=== PATIENT | female | born 1995 | race Caucasian/White ===

== ENCOUNTER → 2021-09-26 17:12 | Outpatient (BNVA) | payer OTHER, SELFPAY | PROVIDERS: PCP Nurse Practitioner Family; Visit Provider Registered Nurse Neonatal Intensive Care | DX: S69.91XA Unspecified injury of right wrist, hand and finger(s), initial encounter (principal); W23.0XXA Caught, crushed, jammed, or pinched between moving objects, initial encounter | CPT/HCPCS: 73110 ==

== ENCOUNTER → 2022-04-02 12:03 | Outpatient (BNVA) | payer OTHER, SELFPAY | PROVIDERS: PCP Nurse Practitioner Family; Visit Provider Nurse Practitioner | DX: N39.0 Urinary tract infection, site not specified (principal) | CPT/HCPCS: 81000 ==

== ENCOUNTER → 2023-02-21 17:17 | Outpatient (BNVA) | payer OTHER, SELFPAY | PROVIDERS: PCP Nurse Practitioner Family; Visit Provider Nurse Practitioner | DX: R39.9 Unspecified symptoms and signs involving the genitourinary system (principal); B37.31 Acute candidiasis of vulva and vagina | CPT/HCPCS: 81000 ==

== ENCOUNTER → 2023-02-27 10:42 | Outpatient (BNVA) | payer OTHER, SELFPAY | PROVIDERS: PCP Nurse Practitioner Family; Visit Provider Family Medicine | DX: F41.1 Generalized anxiety disorder (principal); J45.909 Unspecified asthma, uncomplicated; J30.9 Allergic rhinitis, unspecified; Z76.89 Persons encountering health services in other specified circumstances | CPT/HCPCS: 80053; 85025 ==

== ENCOUNTER → 2023-05-16 08:29 | Outpatient (BNVA) | payer SELFPAY | PROVIDERS: PCP Family Medicine; Visit Provider Nurse Practitioner Women's Health | DX: Z32.00 Encounter for pregnancy test, result unknown (principal); N92.6 Irregular menstruation, unspecified; Z78.9 Other specified health status; F41.1 Generalized anxiety disorder | CPT/HCPCS: 81025; 84702 ==

== ENCOUNTER → 2023-05-31 08:24 | Outpatient (BNVA) | payer BC, OTHER, SELFPAY | PROVIDERS: PCP Family Medicine; Visit Provider Nurse Practitioner Women's Health | DX: Z36.87 Encounter for antenatal screening for uncertain dates (principal) | CPT/HCPCS: 76801 ==

== ENCOUNTER → 2023-06-12 11:03 | Outpatient (BNVA) | payer BC, OTHER, SELFPAY | PROVIDERS: PCP Family Medicine; Visit Provider Obstetrics & Gynecology | DX: Z34.00 Encounter for supervision of normal first pregnancy, unspecified trimester (principal) | CPT/HCPCS: 80307; 84315; 87086 ==

== ENCOUNTER → 2023-06-13 08:20 | Outpatient (BNVA) | payer BC, OTHER, SELFPAY | PROVIDERS: PCP Family Medicine; Visit Provider Obstetrics & Gynecology | DX: Z34.00 Encounter for supervision of normal first pregnancy, unspecified trimester (principal) | CPT/HCPCS: 85027; 86592; 86762; 86803; 86850; 86900; 87340; 87806 ==

== ENCOUNTER → 2023-06-26 09:00 | Outpatient (BNVA) | payer BC, OTHER, SELFPAY | PROVIDERS: PCP Family Medicine; Visit Provider Obstetrics & Gynecology | DX: Z34.00 Encounter for supervision of normal first pregnancy, unspecified trimester (principal) | CPT/HCPCS: 84315; 87491; 87591 ==

== ENCOUNTER → 2023-08-14 13:27 | Outpatient (BNVA) | payer BC, OTHER, SELFPAY | PROVIDERS: PCP Family Medicine; Visit Provider Obstetrics & Gynecology | DX: Z34.00 Encounter for supervision of normal first pregnancy, unspecified trimester (principal) | CPT/HCPCS: 76805; 84315 ==

== ENCOUNTER → 2023-10-10 09:30 | Outpatient (BNVA) | payer BC, SELFPAY | PROVIDERS: PCP Family Medicine; Visit Provider Obstetrics & Gynecology | DX: Z34.00 Encounter for supervision of normal first pregnancy, unspecified trimester (principal) | CPT/HCPCS: 82950; 84315; 85025 ==

== ENCOUNTER → 2023-11-07 10:16 | Outpatient (BNVA) | payer BC, SELFPAY | PROVIDERS: PCP Family Medicine; Visit Provider Obstetrics & Gynecology | DX: Z34.00 Encounter for supervision of normal first pregnancy, unspecified trimester (principal) | CPT/HCPCS: 76816; 84315 ==

== ENCOUNTER 2023-11-21 08:58 | Outpatient (CLI) | payer BC, SELFPAY ==
[2023-11-21] VITALS (9 sets, daily range): BP systolic 129–136; BP diastolic 75–90; PULSE 77–93; RESP 18; BMI 32.5
[2023-11-21 10:10] LABS: Urine Creatinine 50 mg/dL (28-217); Urine Protein Random 7 mg/dL
[2023-11-21 10:12] LABS: UPRO/UCREAT Ratio 0.14 mg/mg CR
[2023-11-21 10:30] LABS: Bilirubin Urine Neg (Negative); Blood Urine Neg (Negative); Glucose Urine UA Norm (Normal); Ketones Urine Negative (Negative); Leukocyte Esterase Urine Negative (Negative); Nitrate Urine Negative (Negative); Protein Urine Neg (Negative); Specific Gravity, Urine 1.015 (1.005-1.030); Urine Appearance Clear (CLEAR); Urine Color Yellow (Yellow); Urobilinogen Urine Norm (Negative); pH Urine 7 (5-7)
[2023-11-21 10:31] LABS: Add Urine Culture? No; RBC Urine RARE /hpf (0-2); Squamous Epithelial Cell Urine 0-4 /hpf (0-5); WBC Urine 0-4 /hpf (0-5)
== END 2023-11-21 10:49 | disposition home or self-care (01) ==
LOC: OPOB 09:13 → OBGYN 09:14
PROVIDERS: PCP Family Medicine; Visit Provider Obstetrics & Gynecology
DX: O26.899 Other specified pregnancy related conditions, unspecified trimester (principal); O16.9 Unspecified maternal hypertension, unspecified trimester; Z3A.00 Weeks of gestation of pregnancy not specified
CPT/HCPCS: 59025; 81001; 82570; 84156; 84315; 99211

== ENCOUNTER → 2023-12-05 08:12 | Outpatient (BNVA) | payer BC, SELFPAY | PROVIDERS: PCP Family Medicine; Visit Provider Obstetrics & Gynecology | DX: Z34.00 Encounter for supervision of normal first pregnancy, unspecified trimester (principal) | CPT/HCPCS: 84315; 87081 ==

== ENCOUNTER 2023-12-17 03:31 | Outpatient (CLI) | payer BC, SELFPAY ==
[2023-12-17 03:24] VITALS: BMI 33.0
[2023-12-17 03:46] VITALS: BP 127/84; PULSE 100; RESP 17; TEMP 36.2
[2023-12-17 04:02] VITALS: BP 115/76; PULSE 100; RESP 16
[2023-12-17 04:16] VITALS: BP 117/78; PULSE 115; RESP 16
[2023-12-17 04:31] VITALS: BP 118/77; PULSE 108; RESP 16
[2023-12-17 04:46] VITALS: BP 117/80; PULSE 126; RESP 16
[2023-12-17 05:13] VITALS: BP 127/84; PULSE 100; RESP 17; TEMP 36.2
== END 2023-12-17 05:13 | disposition home or self-care (01) ==
LOC: OPOB 03:31 → OBGYN 03:32
PROVIDERS: PCP Family Medicine; Visit Provider Obstetrics & Gynecology
DX: O26.899 Other specified pregnancy related conditions, unspecified trimester (principal); Z3A.00 Weeks of gestation of pregnancy not specified; R10.9 Unspecified abdominal pain
CPT/HCPCS: 59025; 99211

== ENCOUNTER 2023-12-30 11:28 | Outpatient (CLI) | payer BC, SELFPAY ==
[2023-12-17 04:02] VITALS: PULSE 100; RESP 16
[2023-12-17 04:16] VITALS: PULSE 115; RESP 16
[2023-12-17 04:31] VITALS: PULSE 108; RESP 16
[2023-12-17 04:46] VITALS: PULSE 126; RESP 16
[2023-12-30 11:48] VITALS: BP 124/80; PULSE 73
[2023-12-30 11:49] VITALS: BMI 32.5
[2023-12-30 12:01] VITALS: BP 121/77; PULSE 79
[2023-12-30 12:16] VITALS: BP 119/78; PULSE 82
[2023-12-30 13:25] VITALS: BP 123/74; PULSE 88; TEMP 36.2
[2023-12-30 15:02] VITALS: BP 125/81; PULSE 87
[2023-12-30 15:05] VITALS: BP 125/81; PULSE 87; RESP 16
== END 2023-12-30 15:05 | disposition home or self-care (01) ==
LOC: OPOB 11:33 → OBGYN 11:34
PROVIDERS: PCP Family Medicine; Visit Provider Obstetrics & Gynecology
DX: O26.899 Other specified pregnancy related conditions, unspecified trimester (principal); Z3A.00 Weeks of gestation of pregnancy not specified; R10.9 Unspecified abdominal pain
CPT/HCPCS: 59025; 99211

== ENCOUNTER 2023-12-31 13:55 | Inpatient (IN) | payer BC, SELFPAY ==
[2023-12-31] VITALS (59 sets, daily range): BP systolic 96–138; BP diastolic 55–87; PULSE 63–125; TEMP 35.8–36.3; O2SAT 98–99; BMI 32.9
--- NOTE | 2023-12-31 14:10 | P.HP_ITS ---
Providers/Chief Complaint 2 Admitting Physician: Maximino Everett MD Primary HOME DAY CARE PROVIDER: Maximino Everett MD Primary Care Provider: Bipin Mckeon DO Chief Complaint: Abdominal pain HPI HOME DAY CARE PROVIDER History of Present Illness 28 y.o. G1 EDC December 31, 2023 At 40 w 0 d No complications Presents to L&D c/o painful UCs States was up all night due to contractions No bleeding or fluid leakage + active movements Present Details : 1 Para: 0 Medications/Allergies Home Medications Medication Instructions Recorded Confirmed Last Taken Type prenat.vits,bola,jkz-eekt-ivtch 1 tab PO DAILY 07/18/23 12/30/23 Unknown History montelukast 10 mg tablet 10 mg PO DAILY #30 tabs 10/02/23 12/30/23 Unknown Rx (Singulair) fluoxetine 10 mg capsule See Rx Instructions .Route 11/21/23 12/30/23 Unknown Rx .COMPLEX #30 caps Allergies Allergy/AdvReac Type Severity Reaction Status Date / Time No Known Allergies Allergy Verified 12/26/23 07:58 PFSH HOME DAY CARE PROVIDER 2 PFSH: Medical History No pertinent past medical history neghx: htn,dm,thyroid,dvt/pe PCP: Dr. Mckeon History of asthma Surgical History No pertinent past surgical history Family History Mother Lupus Seasonal allergies Diabetes Father Seasonal allergies Hypertension Breast cancer Father Diabetes Sister Diabetes Grandmother Diabetes great grandmother maternal Breast cancer maternal Family/Other Ovarian cancer maternal aunt Other Colon cancer Denies family history of Hyperlipidemia Thyroid disease Stroke History History History 2 1 Term 0 Miscarriages/Ectopic Living Children Care MCKENNA Calculator 2 Estimated Delivery Date Method Current WG Current Estimate 12/31/23 Ultrasound #1 40w 0d Other Estimates 01/10/24 LMP (Uncertain) 38w 4d Specific Issues/Plans * UNKNOWN LMP * ANXIETY Vitals/I&O/Wt Last Vital Signs Temp 97.3 F L 12/31/23 14:16 Pulse 77 12/31/23 17:41 BP 98/55 12/31/23 17:41 Pulse Ox 99 12/31/23 15:52 12/31/23 12/31/23 12/31/23 06:59 14:59 22:59 Intake Total 1000 / 1000 Balance 1000 / 1000 Weight last 48 hrs Weight 204 lb Physical Exam 2 Narrative: Weight 204 lbs; 5?6 VS normal Comfortable Lungs: clear Cor: RRR Abd: nontender FH 37 cm; cephalic FHTs normal Cervix: 1-2 cm / 90 / -2 / posterior Ext: no edema External monitor: heart tracing good variability + accelerations Data 12/31/23 13:50 Results Labs OB ([facility]): 2 Obstetrics US 11/07/23 Blood Type A Positive 12/31/23 Antibody Screen Negative 12/31/23 Hct 39.9 % (36-47) 12/31/23 Hgb 13.50 g/dL (11.27-16.99) 12/31/23 Rho(D) Type Rh positive 12/31/23 Plt Count 281 10^3/cmm (157-399) 12/31/23 Hep Bs Antigen Non-reactive (Nonreactive) 06/13/23 Hepatitis C Antibody Non-reactive (Nonreactive) 06/13/23 Rubella IgG Antibody 248.8 IU/mL (0.0-10.0) H 06/13/23 RPR Nonreactive (Nonreactive) 06/13/23 HIV 1&2 Ab & HIV 1 Ag Non-reactive (Non-Reactiv) 06/13/23 C.trachomatis RNA (TMA) Not detected (NOT DETECTED) N.gonorrhoeae RNA (TMA) Not detected (NOT DETECTED) T. vaginalis Amp RNA Not detected (NOT DETECTED) 06/26/23 Chlamydia/GC Comment See note 06/26/23 Gest Glucose Tolerance 97 mg/dL (70-139) 10/10/23 Ser , Semi-Qnt 20170.00 mIU/mL 05/16/23 HCG, Qual Positive (Negative) H 05/16/23 Urine Opiates Screen Negative ng/mL (Negative) 06/12/23 Ur Barbiturates Screen Negative ng/mL (Negative) 06/12/23 Ur Phencyclidine Scrn Negative ng/mL (Negative) 06/12/23 Ur Amphetamines Screen Negative ng/mL (Negative) 06/12/23 U Benzodiazepines Scrn Negative ng/mL (Negative) 06/12/23 Urine Cocaine Screen Negative ng/mL (Negative) 06/12/23 U Marijuana (THC) Screen Negative ng/mL (Negative) 06/12/23 Micro Urine Specimen 06/12/23 A&P Assessment and plan (1) Encounter for induction of labor: 40 w 0 d Fetus reassuring Patient requests labor induction Procedures of labor induction explained to patient, including use of Cytotec and Pitocin Risks of labor induction explained, including, but not limited to, prolonged labor, slight increase in rate. Patient understands and wants to proceed Plan admit Plan Cytotec 25 ug intravaginal Attestations 2 Medical Necessity Statement*: patient at 40 w 0d with labor pains, requests induction of labor Coding Level of Care Code Acute Code for Chg Fwd Diagnoses Encounter for induction of labor Z34.90 Time Spent (min) 60
[2023-12-31] MEDS: lactated ringers 1,000 ML 999 ML IV ×2 (14:13→15:28)
[2023-12-31 15:11] LABS: Basophils # 0.1 10^3/uL (0.0-0.1); Basophils % 0.3 %; Eosinophils # 0.1 10^3/uL (0.0-0.8); Eosinophils % 0.8 %; Hematocrit 39.9 % (36-47); Lymphocytes # 1.8 10^3/uL (0.8-4.8); Lymphocytes % 10.1 %; Mean Corpuscular HGB Conc 33.8 g/dL (30-55); Mean Corpuscular Hemoglobin 32.2 pg (27-33); Mean Corpuscular Volume 95.2 fl (85-98); Mean Platelet Volume 10.4 fL (7.4-10.4); Monocytes # 0.7 10^3/uL (0.2-0.9); Monocytes % 4.1 %; Neutrophils # 14.71 10^3/uL (1.8-7.7); Nucleated Red Blood Cells % 0 %; Platelet Count 281 10^3/cmm (157-399); Red Blood Count 4.19 10^6/uL (3.85-5.65); Red Cell Distribution Width 12.2 % (12.1-15.1)
--- NOTE | 2023-12-31 16:00 | ANES.PROC ---
Anesthesia Procedures Procedure/Date: 12/31/23 Epidural: Time Out Performed: Yes Consents Signed: Procedure Consent Consent: requested by attending/covering physician, from patient, risks and benefits reviewed and patient agrees to proceed Lumbar Level: L2-L3 Epidural position: sitting Epidural procedure: sterile prep of area, 1% lidocaine to numb the area, 18 g needle, neg for paresthesia, test dose given, 1.5% xylocaine 1:200k epi (5cc), 0.2% Ropivacaine bolus ml (4cc and Fentanyl 100mcg), placed PCEA, no systemic response, sterile dressing applied, L.U.D. no apparent complications and 0.2% Ropiavacaine @ mls/hr (10cc/hour> TAIWO at 7cm. Cath placed 2cm into space. Pt tolerated well)
--- NOTE | 2023-12-31 16:02 | P.ANESASSM_ITS ---
Pre-Anesthetic Assessment Height/Weight: Height 1.68 m Weight 92.533 kg Temp Pulse BP Pulse Ox 97.3 F L 108 H 113/71 99 12/31/23 14:16 12/31/23 15:58 12/31/23 15:58 12/31/23 15:52 Preop Diagnosis: Labor pain BERONICA Was Beta Alfred taken within 24 hours: N/A Was Clonidine taken within 24 hours: N/A Social No alcohol and No tobacco Exam alert, oriented x 3, clear to auscultation bilaterally and regular rate & rhythm Airway Submandibular: within normal limits Cervical ROM: within normal limits Mallampati: Class II Dentition: full History/ROS No significant history except as noted and No significant complaints Pulmonary Asthma CV/HEM None reported None reported Hepatic None reported GI None reported Metabolic None reported Musc/skel None reported Neuropsych None reported Anesthetic Plan ASA status: 2 Anesthesia: Anesthesia Evaluation and Regional (specify below) (BERONICA) Risk of > 500 ml blood loss (7ml/kg in children): No Medications/Allergies Home Medications Medication Instructions Recorded Confirmed Last Taken Type prenat.vits,bola,zbx-zhwz-hfrfl 1 tab PO DAILY 07/18/23 12/30/23 Unknown History montelukast 10 mg tablet 10 mg PO DAILY #30 tabs 10/02/23 12/30/23 Unknown Rx (Singulair) fluoxetine 10 mg capsule See Rx Instructions .Route 11/21/23 12/30/23 Unknown Rx .COMPLEX #30 caps Allergies Allergy/AdvReac Type Severity Reaction Status Date / Time No Known Allergies Allergy Verified 12/26/23 07:58 Current Medications Generic Name Dose Route Start Last Admin Trade Name Freq PRN Reason Stop Dose Admin Lactated Ringer's 1,000 mls @ 999 mls/hr 12/31/23 14:02 12/31/23 15:28 Lactated Ringers IV 999 mls/hr .Q1H1M PRN Administration See label comments PFSH Anesthesia Medical History No pertinent past medical history neghx: htn,dm,thyroid,dvt/pe PCP: Dr. Mckeon History of asthma Surgical History No pertinent past surgical history Family History Mother Lupus Seasonal allergies Diabetes Father Seasonal allergies Hypertension Breast cancer Father Diabetes Sister Diabetes Grandmother Diabetes great grandmother maternal Breast cancer maternal Family/Other Ovarian cancer maternal aunt Other Colon cancer Denies family history of Hyperlipidemia Thyroid disease Stroke Female Reproductive History : 1 Spontaneous abortions: No Data Anesthesia 12/31/23 13:50 Short CBC 12/31/23 Range/Units 13:50 WBC 17.50 H (3.29-11.43) 10^3/uL Hgb 13.50 (11.27-16.99) g/dL Hct 39.9 (36-47) % MCV 95.2 (85-98) fl Plt Count 281 (157-399) 10^3/cmm Neut % (Auto) 84.0 % Neut # (Auto) 14.71 H (1.8-7.7) 10^3/uL Blood Bank 12/31/23 13:50 Blood Type A Positive Rho(D) Type Rh positive Antibody Screen Negative Cardiac Studies: 2 No Data to Display
[2023-12-31] MEDS: ROPivacaine syringe 100 MG/50 ML SYRINGE 10 MG EPIDURAL ×2 (16:06→20:45)
--- NOTE | 2023-12-31 17:45 | P.PN_ITS ---
INVESTIGATIONS CHIEF Subjective 2 Subjective: Interval history: Fetus reassuring Comfortable with epidural Cx (per RN) 4 cm Plan start pitocin Labor: Station: -2 Amniotic Membrane Status: Intact Monitor Mode: External Contraction Pattern: Regular Status: Category I Vitals/I&O/Wt Last Vital Signs Temp 97.3 F L 12/31/23 14:16 Pulse 72 12/31/23 17:56 BP 105/59 12/31/23 17:56 Pulse Ox 99 12/31/23 15:52 12/31/23 12/31/23 12/31/23 06:59 14:59 22:59 Intake Total 1000 / 1000 Balance 1000 / 1000 Weight last 48 hrs Weight 204 lb Data 12/31/23 13:50 A&P Assessment and plan (1) Encounter for induction of labor: Attestations 2 Medical Necessity Statement*: patient at 40 w 0 d with labor pains, admitted for induction of labor Coding Level of Care Code Acute Code for Chg Fwd Diagnoses Encounter for induction of labor Z34.90 Time Spent (min) 20
[2023-12-31] MEDS: oxytocin 30 UNIT/500 ML BAG IV (18:09)
[2023-12-31] MEDS: dextrose 5%-lactated ringers 1,000 ML 125 ML IV (20:32)
[2024-01-01] VITALS (22 sets, daily range): BP systolic 104–144; BP diastolic 59–89; PULSE 45–133; RESP 16; TEMP 36.5–36.9; O2SAT 96–98
[2024-01-01] MEDS: oxytocin 30 UNIT/500 ML BAG 600 UNIT IV (01:01)
[2024-01-01] MEDS: lidocaine 2% INJ 20 mL INJECTION (01:24)
--- NOTE | 2024-01-01 02:14 | P.PN_ITS ---
SALESPERSON JEWELRY Subjective 2 Subjective: Interval history: DELIVERY NOTE , vigorous female infant Cord gases obtained Normal placenta and cord Second-degree perineal laceration repaired EBL: 300 cc No complications Labor: Station: +1 Amniotic Membrane Status: Ruptured Monitor Mode: External Contraction Pattern: Regular Status: Category I Vitals/I&O/Wt Last Vital Signs Temp 96.4 F L 12/31/23 19:06 Pulse 114 H 01/01/24 02:11 BP 110/66 01/01/24 02:11 Pulse Ox 99 12/31/23 15:52 O2 Del Method Room Air 12/31/23 21:20 12/31/23 12/31/23 01/01/24 14:59 22:59 06:59 Intake Total 2061. / 60.2 / 566 Balance / 60.2 / 566 Weight last 48 hrs Weight 204 lb Physical Exam 2 Urinary Catheter Management: Quijano Latex: Cath Placed During This Visit: yes Reason for Continuing Indwelling Catheter: Required Immobilization for Trauma or Surgery or Anesthesia Urinary Catheter Date of Insertion: 12/31/23 Urinary Catheter Time of Insertion: 16:50 Data 12/31/23 13:50 A&P Assessment and plan (1) Vaginal delivery: (2) Second degree perineal laceration: Attestations 2 Medical Necessity Statement*: patient at 40 w 0 d with labor pains, admitted for induction of labor s/p vaginal delivery Coding Level of Care Code Acute Code for Chg Fwd Diagnoses Vaginal delivery O80 Second degree perineal laceration O70.1 Time Spent (min) 60
--- NOTE | 2024-01-01 02:16 | PM.DELIVERY ---
Delivery Note: Date of delivery: January 01, 2024 Pre-delivery diagnoses: 40 w 0 d induction of labor Post-delivery diagnoses: 40 w 0 d induction of labor vaginal delivery second-degree perineal laceration, repaired Procedure: induction of labor vaginal delivery second-degree perineal laceration, repaired Op report anesthesia: Epidural Delivering Physician: Maximino Everett MD Estimated blood loss (mL): 300 Findings: , vigorous female infant Cord gases obtained Normal placenta and cord Second-degree perineal laceration repaired EBL: 300 cc No complications Pre-Delivery Course: normal labor course Delivery: vaginal Post-Delivery Status: good History History History 1 Term 0 Miscarriages/Ectopic Living Children A&P Assessment and plan (1) Vaginal delivery: care (2) Second degree perineal laceration: Coding Level of Care Code Acute Code for Chg Fwd Diagnoses Vaginal delivery O80 Second degree perineal laceration O70.1 Time Spent (min) 60
[2024-01-01] MEDS: HYDROcodone-acetaminophen 5-325 mg Tablet PO (05:28)
[2024-01-01] MEDS: benzocaine-menthol 78 gm Canister 1 SPRAY TOPICAL (05:29)
[2024-01-01] MEDS: lanolin oint 7 gm 1 APPLIC TOPICAL (05:29)
--- NOTE | 2024-01-01 08:16 | ANE.PACU2 ---
Inpatient post-anesthesia follow up: Airway intact: Yes Vital signs: Temperature 96.4 F Pulse Rate 118 Respiratory Rate Blood Pressure 119/74 Pulse Oximetry 99 Oxygen Delivery Me thod Room Air Oxygen Flow Rate Fraction of Inspir ed Oxygen Hydration adequate: Yes Nausea and vomiting: No Pain level: 1 Mental status: Baseline Epidural Start/End: Epidural Start Date: 12/31/23 Epidural Start Time: 15:37 Epidural End Date: 01/01/24 Epidural End Time: 02:18
[2024-01-01] MEDS: ibuprofen 800 mg tablet PO ×3 (09:46→20:35)
[2024-01-01] MEDS: docusate sodium 100 mg Capsule PO ×2 (09:46→18:28)
[2024-01-01] MEDS: prenatal vitamin Capsule 1 CAP PO (09:46)
[2024-01-01 13:47] LABS: Hematocrit 28.9 % (36-47); Mean Corpuscular HGB Conc 33.9 g/dL (30-55); Mean Corpuscular Hemoglobin 32.7 pg (27-33); Mean Corpuscular Volume 96.3 fl (85-98); Mean Platelet Volume 10.2 fL (7.4-10.4); Platelet Count 200 10^3/cmm (157-399); Red Cell Distribution Width 12.4 % (12.1-15.1)
[2024-01-01] MEDS: montelukast sodium 10 mg Tablet PO (18:28)
[2024-01-02 04:00] VITALS: BP 119/79; PULSE 94; RESP 16; TEMP 36.6; O2SAT 97
[2024-01-02] MEDS: ibuprofen 800 mg tablet PO (08:19)
[2024-01-02] MEDS: fluoxetine 10 mg Capsule PO (08:19)
[2024-01-02] MEDS: prenatal vitamin Capsule 1 CAP PO (08:19)
[2024-01-02] MEDS: docusate sodium 100 mg Capsule PO (08:19)
--- NOTE | 2024-01-02 10:05 | PM.OBGYPN ---
MARINE PROPULSION TECHNICIAN Subjective Subjective: Interval history: no c/o no bleeding, pain eating, voiding, ambulating well caring for without any problems Labor: Station: +1 Amniotic Membrane Status: Ruptured Monitor Mode: External Contraction Pattern: Regular Status: Category I Vitals/I&O/Wt Last Vital Signs Temp 98.3 F 01/02/24 14:40 Pulse 86 01/02/24 14:40 Resp 16 01/02/24 14:40 BP 120/75 01/02/24 14:40 Pulse Ox 96 01/02/24 14:40 O2 Del Method Room Air 01/02/24 14:10 Physical Exam Narrative: afebrile, VS normal comfortable, awake, alert Abd: soft, nontender. fundus firm Ext: no edema; nontender Urinary Catheter Management: Quijano Latex: Cath Placed During This Visit: yes Reason for Continuing Indwelling Catheter: Required Immobilization for Trauma or Surgery or Anesthesia Urinary Catheter Date of Insertion: 12/31/23 Urinary Catheter Time of Insertion: 16:50 Data 01/01/24 13:38 A&P Assessment and plan (1) Vaginal delivery: PPD #1 doing well discharge home today instructions and precautions given call/return if fever, chills, headache, blurry vision, nausea, vomiting, abdominal pain; vaginal bleeding or discharge; shortness of breath, chest pain, leg pains or swelling; inability to void, perineal pain or swelling; feelings of depression or mood changes; thoughts of suicide or harming others; inability to care for baby. f/u in 6 weeks or PRN Attestations Medical Necessity Statement*: patient s/p vaginal delivery, plan discharge today Coding Level of Care Code Acute Code for Chg Fwd Diagnoses Vaginal delivery O80 Time Spent (min) 20
--- NOTE | 2024-01-02 10:10 | PM.OBGYDC ---
Discharge Providers FACTORY HAND Date of Admission: 12/31/23 13:55 Date of Discharge: 01/02/24 Attending Provider at Admission: Maximino Everett MD Attending Provider at Discharge: Maximino Everett MD Consults: none Primary FACTORY HAND: Maximino Everett MD Primary Care Provider: Bipin Mckeon DO Diagnoses at Discharge Discharge Diagnosis (1) Vaginal delivery: Details from hospital stay: patient at 40 w 0 d, admitted for labor induction patient with normal labor course had vaginal delivery with second-degree perineal laceration, repaired did well discharged home on first day Status: Acute Reason for Visit Reason for Visit: Abdominal pain Brief History: 28 y.o. G1 at 40 w 0 d admitted for labor induction Hospital Course Hospital Course patient at 40 w 0 d, admitted for labor induction patient with normal labor course had vaginal delivery with second-degree perineal laceration, repaired did well discharged home on first day Information Peripartum Data: Delivery Method: Vaginal Laceration description: Perineal - 2nd Degree Episiotomy description: None complications: none Physical Exam Narrative: afebrile, VS normal comfortable, awake, alert Abd: soft, nontender. fundus firm Ext: no edema; nontender Urinary Catheter Management: Quijano Latex: Cath Placed During This Visit: yes Reason for Continuing Indwelling Catheter: Required Immobilization for Trauma or Surgery or Anesthesia Urinary Catheter Date of Insertion: 12/31/23 Urinary Catheter Time of Insertion: 16:50 History History History 1 Term 0 Miscarriages/Ectopic Living Children Discharge Data Studies Completed and Pending Laboratory Results WBC 21.00 10^3/uL (3.29-11.43) H 01/01/24 13:38 RBC 3.00 10^6/uL (3.85-5.65) L 01/01/24 13:38 Hgb 9.80 g/dL (11.27-16.99) L 01/01/24 13:38 Hct 28.9 % (36-47) L 01/01/24 13:38 MCV 96.3 fl (85-98) 01/01/24 13:38 MCH 32.7 pg (27-33) 01/01/24 13:38 MCHC 33.9 g/dL (30-55) 01/01/24 13:38 RDW 12.4 % (12.1-15.1) 01/01/24 13:38 Plt Count 200 10^3/cmm (157-399) 01/01/24 13:38 MPV 10.2 fL (7.4-10.4) 01/01/24 13:38 Neut % (Auto) 84.0 % 12/31/23 13:50 Lymph % (Auto) 10.1 % 12/31/23 13:50 [place] % (Auto) 4.1 % 12/31/23 13:50 Eos % (Auto) 0.8 % 12/31/23 13:50 Baso % (Auto) 0.3 % 12/31/23 13:50 Neut # (Auto) 14.71 10^3/uL (1.8-7.7) H 12/31/23 13:50 Lymph # (Auto) 1.8 10^3/uL (0.8-4.8) 12/31/23 13:50 [place] # (Auto) 0.7 10^3/uL (0.2-0.9) 12/31/23 13:50 Eos # (Auto) 0.1 10^3/uL (0.0-0.8) 12/31/23 13:50 Baso # (Auto) 0.1 10^3/uL (0.0-0.1) 12/31/23 13:50 Nucleated RBC % (auto) 0 % 12/31/23 13:50 Nucleated RBCs # 0.0 /100WBC 12/31/23 13:50 Blood Type A Positive 12/31/23 13:50 Rho(D) Type Rh positive 12/31/23 13:50 Antibody Screen Negative 12/31/23 13:50 Procedures Performed induction of labor vaginal delivery repair of second-degree perineal laceration Vitals Last Vital Signs Temp 98.3 F 01/02/24 14:40 Pulse 86 01/02/24 14:40 Resp 16 01/02/24 14:40 BP 120/75 01/02/24 14:40 Pulse Ox 96 01/02/24 14:40 O2 Del Method Room Air 01/02/24 14:10 Results Labs OB ([facility]): Obstetrics US 11/07/23 Blood Type A Positive 12/31/23 Antibody Screen Negative 12/31/23 Hct 28.9 % (36-47) L 01/01/24 Hgb 9.80 g/dL (11.27-16.99) L 01/01/24 Rho(D) Type Rh positive 12/31/23 Plt Count 200 10^3/cmm (157-399) 01/01/24 Hep Bs Antigen Non-reactive (Nonreactive) 06/13/23 Hepatitis C Antibody Non-reactive (Nonreactive) 06/13/23 Rubella IgG Antibody 248.8 IU/mL (0.0-10.0) H 06/13/23 RPR Nonreactive (Nonreactive) 06/13/23 HIV 1&2 Ab & HIV 1 Ag Non-reactive (Non-Reactiv) 06/13/23 C.trachomatis RNA (TMA) Not detected (NOT DETECTED) 06/26/23 N.gonorrhoeae RNA (TMA) Not detected (NOT DETECTED) 06/26/23 T. vaginalis Amp RNA Not detected (NOT DETECTED) 06/26/23 Chlamydia/GC Comment See note 06/26/23 Gest Glucose Tolerance 97 mg/dL (70-139) 10/10/23 Ser , Semi-Qnt 22853.00 mIU/mL 05/16/23 HCG, Qual Positive (Negative) H 05/16/23 Urine Opiates Screen Negative ng/mL (Negative) 06/12/23 Ur Barbiturates Screen Negative ng/mL (Negative) 06/12/23 Ur Phencyclidine Scrn Negative ng/mL (Negative) 06/12/23 Ur Amphetamines Screen Negative ng/mL (Negative) 06/12/23 U Benzodiazepines Scrn Negative ng/mL (Negative) 06/12/23 Urine Cocaine Screen Negative ng/mL (Negative) 06/12/23 U Marijuana (THC) Screen Negative ng/mL (Negative) 06/12/23 Micro Urine Specimen 06/12/23 Discharge Plan Discharge Patient Disposition: Home Condition: Stable Prescriptions: Continued montelukast [Singulair] 10 mg tablet 10 mg PO DAILY Qty: 30 11RF fluoxetine 10 mg capsule See Rx Instructions .ROUTE .COMPLEX Qty: 30 0RF Dose Instruction: Take 1 capsule by mouth once daily Rx Instructions: Take 1 capsule by mouth once daily prenat.vits,bola,lef-dxzm-ajmpa Tablet 1 tab PO DAILY Discharge Orders: Discharge Order (Routine); Ordered 01/02/24 Ordered By: Maximino Everett Referrals: Maximino Everett MD [Physician] - 02/13/24 12:45 pm Discharge Diet: Usual diet Discharge Activity: Increase activity as tolerated Patient Instructions: Depression (GEN), Bleeding (GEN), OB Food/Drug Interaction Guide, OB Home Care Instructions, OB Care at Home, Opioid Safety, OB Vaginal Deliveries - [facility], Abnormal Bleeding Discharge Attestations FACTORY HAND Time Spent in Discharge Care*: less than 30 min Coding Level of Care Code Acute Code for Chg Fwd Diagnoses Vaginal delivery O80 Time Spent (min) 20
[2024-01-02 14:10] VITALS: BP 120/75; PULSE 86; RESP 16; TEMP 36.8; O2SAT 96
[2024-01-02 14:40] VITALS: BP 120/75; PULSE 86; RESP 16; TEMP 36.8; O2SAT 96
== END 2024-01-02 14:40 | disposition home or self-care (01) | DRG 807 ==
LOC: OPOB 01-01 06:34 → OBGYN 01-01 06:35
PROVIDERS: Admitting Provider Obstetrics & Gynecology; PCP Family Medicine; Visit Provider Obstetrics & Gynecology
DX: O99.52 Diseases of the respiratory system complicating childbirth (principal); Z37.0 Single live birth; Z3A.40 40 weeks gestation of pregnancy; O70.1 Second degree perineal laceration during delivery; J45.909 Unspecified asthma, uncomplicated
CPT/HCPCS: 36415; 51702; 59025; 59409; 85025; 85027; 86850; 86900; 96374; 98960; 99211; J2590; J2795; J3010; J7120; J7121

== ENCOUNTER 2024-01-09 16:51 | Inpatient (IN) | payer BC, SELFPAY ==
[2024-01-09 17:29] VITALS: BMI 29.0
[2024-01-09 17:31] VITALS: BP 133/91; PULSE 130; RESP 18; TEMP 36.7; O2SAT 97
[2024-01-09] MEDS: docusate sodium 100 mg Capsule PO (18:00)
[2024-01-09] MEDS: ampicillin-sulbactam 3 GM in sodium chloride 0.9% (plus) 50 ML IV ×2 (18:00→23:32)
[2024-01-09] MEDS: dextrose 5%-lactated ringers 1,000 ML 125 ML IV (18:02)
--- NOTE | 2024-01-09 19:51 | PM.OBGYHP ---
Providers/Chief Complaint Admitting Physician: Maximino Everett MD Primary FOUNTAIN JERK: Maximino Everett MD Primary Care Provider: Emely Galvan, MARKETING PLANNER HPI FOUNTAIN JERK History of Present Illness 28 y.o. s/p January 01, 2024 with repair of second-degree perineal laceration was doing well until two days ago when patient began to have fever, chills, nausea, and mild abdominal pain had temperatures to 101 at home no bleeding no pain in breasts, perineum, or legs no vomiting Medications/Allergies Home Medications Medication Instructions Recorded Confirmed Last Taken Type prenat.vits,bola,grh-uzyy-nnlep 1 tab PO DAILY 07/18/23 01/09/24 Unknown History montelukast 10 mg tablet 10 mg PO DAILY #30 tabs 10/02/23 01/09/24 Unknown Rx (Singulair) docusate sodium 50 mg capsule 50 mg PO BID 01/09/24 01/09/24 Unknown History (Stool Softener) fluoxetine 10 mg capsule 10 mg PO 1XD 01/09/24 01/09/24 Unknown History Allergies Allergy/AdvReac Type Severity Reaction Status Date / Time No Known Allergies Allergy Verified 12/26/23 07:58 PFSH FOUNTAIN JERK PFSH: Medical History No pertinent past medical history neghx: htn,dm,thyroid,dvt/pe PCP: Dr. Mckeon History of asthma Surgical History No pertinent past surgical history Family History Mother Lupus Seasonal allergies Diabetes Father Seasonal allergies Hypertension Breast cancer Father Diabetes Sister Diabetes Grandmother Diabetes great grandmother maternal Breast cancer maternal Family/Other Ovarian cancer maternal aunt Other Colon cancer Denies family history of Hyperlipidemia Thyroid disease Stroke History History History 1 Term 1 0 Miscarriages/Ectopic 0 Living Children 1 Care MCKENNA Calculator Estimated Delivery Date Method Current WG Current Estimate 12/31/23 Ultrasound #1 41w 2d Other Estimates 01/10/24 LMP (Uncertain) 39w 6d Specific Issues/Plans UNKNOWN LMP ANXIETY Vitals/I&O/Wt Last Vital Signs Temp 98.0 F 01/09/24 17:31 Pulse 130 H 01/09/24 17:31 Resp 18 01/09/24 17:31 BP 133/91 01/09/24 17:31 Pulse Ox 97 01/09/24 17:31 O2 Del Method Room Air 01/09/24 17:31 01/09/24 01/09/24 01/09/24 06:59 14:59 22:59 Intake Total 50 / 50 Output Total 1000 / 1000 Balance -950 / -950 Weight last 48 hrs Weight 180 lb Physical Exam Narrative: Comfortable, awake, alert HEENT: normal Breasts: nontender. No masses Lungs: clear Cor: RRR Abd: soft, nondistended Mild tenderness lower abdomen No rebound, guarding Ext: normal. Results Labs OB ([facility]): Obstetrics US 11/07/23 Blood Type A Positive 12/31/23 Antibody Screen Negative 12/31/23 Hct 28.9 % (36-47) L 01/01/24 Hgb 9.80 g/dL (11.27-16.99) L 01/01/24 Rho(D) Type Rh positive 12/31/23 Plt Count 200 10^3/cmm (157-399) 01/01/24 Hep Bs Antigen Non-reactive (Nonreactive) 06/13/23 Hepatitis C Antibody Non-reactive (Nonreactive) 06/13/23 Rubella IgG Antibody 248.8 IU/mL (0.0-10.0) H 06/13/23 RPR Nonreactive (Nonreactive) 06/13/23 HIV 1&2 Ab & HIV 1 Ag Non-reactive (Non-Reactiv) 06/13/23 C.trachomatis RNA (TMA) Not detected (NOT DETECTED) 06/26/23 N.gonorrhoeae RNA (TMA) Not detected (NOT DETECTED) 06/26/23 T. vaginalis Amp RNA Not detected (NOT DETECTED) 06/26/23 Chlamydia/GC Comment See note 06/26/23 Gest Glucose Tolerance 97 mg/dL (70-139) 10/10/23 Ser , Semi-Qnt 22002.00 mIU/mL 05/16/23 HCG, Qual Positive (Negative) H 05/16/23 Urine Opiates Screen Negative ng/mL (Negative) 06/12/23 Ur Barbiturates Screen Negative ng/mL (Negative) 06/12/23 Ur Phencyclidine Scrn Negative ng/mL (Negative) 06/12/23 Ur Amphetamines Screen Negative ng/mL (Negative) 06/12/23 U Benzodiazepines Scrn Negative ng/mL (Negative) 06/12/23 Urine Cocaine Screen Negative ng/mL (Negative) 06/12/23 U Marijuana (THC) Screen Negative ng/mL (Negative) 06/12/23 Micro Urine Specimen 06/12/23 A&P Assessment and plan (1) endometritis: s/p January 01, 2024 with repair of second-degree perineal laceration fever, chills, abdominal pain x two days patient with endometritis plan admit for IV antibiotics start Unasyn 3 grams IV q6h Attestations Medical Necessity Statement*: patient with h/o , now with fever, chills, abdominal pain. Coding Level of Care Code Acute Code for Chg Fwd Diagnoses endometritis O86.12 Time Spent (min) 60
[2024-01-09 20:00] VITALS: BP 130/81; PULSE 105; RESP 17; TEMP 37.3; O2SAT 100
[2024-01-09] MEDS: montelukast sodium 10 mg Tablet PO (20:05)
[2024-01-09 21:32] VITALS: BP 119/81; PULSE 97; RESP 16; TEMP 38; O2SAT 97
[2024-01-09] MEDS: HYDROcodone-acetaminophen 5-325 mg Tablet PO (21:47)
[2024-01-09 21:57] LABS: Basophils % 0.4 %; Eosinophils # 0.3 10^3/uL (0.0-0.8); Eosinophils % 2.5 %; Hematocrit 34.2 % (36-47); Lymphocytes # 1.7 10^3/uL (0.8-4.8); Lymphocytes % 15.8 %; Mean Corpuscular HGB Conc 32.7 g/dL (30-55); Mean Corpuscular Hemoglobin 32.5 pg (27-33); Mean Corpuscular Volume 99.1 fl (85-98); Mean Platelet Volume 9.1 fL (7.4-10.4); Monocytes # 0.6 10^3/uL (0.2-0.9); Neutrophils # 7.86 10^3/uL (1.8-7.7); Neutrophils % 74.7 %; Nucleated Red Blood Cells % 0 %; Platelet Count 282 10^3/cmm (157-399); Red Blood Count 3.45 10^6/uL (3.85-5.65); Red Cell Distribution Width 12.6 % (12.1-15.1); White Blood Count 10.51 10^3/uL (3.29-11.43)
[2024-01-09 22:17] LABS: Alanine Aminotransferase 24 U/L (0-33); Albumin Level 3.3 g/dL (3.5-5.2); Alkaline Phosphatase 119 U/L (35-105); Anion Gap 15.2 (5-19); Aspartate Amino Transferase 17 U/L (0-32); Blood Urea Nitrogen 7 mg/dL (6-20); Calcium 8.5 mg/dL (8.5-10.5); Carbon Dioxide 22 mmol/L (22-29); Chloride 104 mmol/L (98-107); Creatinine Clr Calc Pharmacy 183.6761; Globulin 3.5 g/dL (1.3-4.6); Glomerular Filtration Rate 149.1 mL/min (90-130); Glucose 112 mg/dL (65-115); Osmolality Calculated 285 mOsm/kg (285-295); Potassium 3.2 mmol/L (3.5-5.1); Sodium 138 mmol/L (136-145); Total Bilirubin 0.2 mg/dL (0.15-1.2); Total Protein 6.8 g/dL (6.6-8.7)
[2024-01-09 23:01] VITALS: BP 108/73; PULSE 106; RESP 14; TEMP 37.1; O2SAT 96
[2024-01-10] VITALS (7 sets, daily range): BP systolic 107–121; BP diastolic 67–79; PULSE 75–120; RESP 16–18; TEMP 36.6–37.9; O2SAT 96–99
[2024-01-10] MEDS: dextrose 5%-lactated ringers 1,000 ML 125 ML IV ×3 (03:25→22:24)
[2024-01-10] MEDS: ampicillin-sulbactam 3 GM in sodium chloride 0.9% (plus) 50 ML IV ×4 (05:50→23:18)
[2024-01-10 05:56] LABS: Basophils % 0.3 %; Eosinophils # 0.5 10^3/uL (0.0-0.8); Eosinophils % 5.5 %; Hematocrit 32.7 % (36-47); Lymphocytes % 22.5 %; Mean Corpuscular HGB Conc 32.4 g/dL (30-55); Mean Corpuscular Hemoglobin 31.9 pg (27-33); Mean Corpuscular Volume 98.5 fl (85-98); Mean Platelet Volume 9.5 fL (7.4-10.4); Monocytes # 0.6 10^3/uL (0.2-0.9); Neutrophils % 64.1 %; Nucleated Red Blood Cells % 0 %; Platelet Count 281 10^3/cmm (157-399); Red Blood Count 3.32 10^6/uL (3.85-5.65); Red Cell Distribution Width 12.6 % (12.1-15.1); White Blood Count 9.05 10^3/uL (3.29-11.43)
[2024-01-10 06:24] LABS: Alanine Aminotransferase 23 U/L (0-33); Albumin Level 3.1 g/dL (3.5-5.2); Alkaline Phosphatase 113 U/L (35-105); Anion Gap 14.3 (5-19); Aspartate Amino Transferase 17 U/L (0-32); Blood Urea Nitrogen 5 mg/dL (6-20); Calcium 8.1 mg/dL (8.5-10.5); Carbon Dioxide 23 mmol/L (22-29); Chloride 106 mmol/L (98-107); Globulin 3.2 g/dL (1.3-4.6); Glomerular Filtration Rate 192.9 mL/min (90-130); Glucose 99 mg/dL (65-115); Osmolality Calculated 287 mOsm/kg (285-295); Potassium 3.3 mmol/L (3.5-5.1); Sodium 140 mmol/L (136-145); Total Bilirubin 0.2 mg/dL (0.15-1.2); Total Protein 6.3 g/dL (6.6-8.7)
[2024-01-10] MEDS: docusate sodium 100 mg Capsule PO ×2 (08:20→17:14)
[2024-01-10] MEDS: acetaminophen 325 mg Tablet 650 MG PO (08:21)
[2024-01-10] MEDS: fluoxetine 10 mg Capsule PO (08:21)
--- NOTE | 2024-01-10 13:30 | P.PN_ITS ---
HUMAN RESOURCES ADMINISTRATOR Subjective 2 Subjective: Interval history: States abdominal pain much less Eating, voiding, ambulating well No bleeding, discharge Vitals/I&O/Wt Last Vital Signs Temp 100.3 F H 01/10/24 19:41 Pulse 120 H 01/10/24 19:41 Resp 17 01/10/24 19:41 BP 121/78 01/10/24 19:41 Pulse Ox 99 01/10/24 19:41 O2 Del Method Room Air 01/10/24 19:41 01/10/24 01/10/24 01/10/24 06:59 14:59 22:59 Intake Total 1404.167 / 5235.450 7867.833 / 1225.833 50 / 1275.833 Balance 1404.167 / -701.876 4646.833 / 1225.833 50 / 1275.833 Weight last 48 hrs Weight 190 lb Weight 180 lb Physical Exam 2 Narrative: Comfortable, awake, alert Tmax 100.4; remainder of temps afebrile VS normal Abd: soft, nontender Data 01/10/24 04:53 01/10/24 04:53 A&P Assessment and plan (1) endometritis: s/p January 01, 2024 with repair of second-degree perineal laceration endometritis patient admitted with fever, chills, and abdominal pain started on Unasyn 3Gms IV patient clinically improved continue Unasyn Attestations 2 Medical Necessity Statement*: patient admitted with endometritis, continue IV antibiotics Coding Level of Care Code Acute Code for [facility] Fwd Diagnoses endometritis O86.12 Time Spent (min) 20
[2024-01-10] MEDS: montelukast sodium 10 mg Tablet PO (17:14)
[2024-01-11 04:00] VITALS: BP 108/73; PULSE 83; RESP 16; TEMP 37.1; O2SAT 96
[2024-01-11] MEDS: ampicillin-sulbactam 3 GM in sodium chloride 0.9% (plus) 50 ML IV ×3 (05:55→16:39)
[2024-01-11] MEDS: dextrose 5%-lactated ringers 1,000 ML 125 ML IV (06:18)
[2024-01-11 07:19] VITALS: BP 119/78; PULSE 96; RESP 16; TEMP 36.9; O2SAT 97
[2024-01-11] MEDS: fluoxetine 10 mg Capsule PO (07:38)
[2024-01-11] MEDS: docusate sodium 100 mg Capsule PO ×2 (07:38→16:39)
[2024-01-11 12:00] VITALS: BP 115/79; PULSE 81; RESP 16; TEMP 36.2; O2SAT 97
--- NOTE | 2024-01-11 14:17 | PC.NURSE ---
Per Dr. Everett, if pt is still afebrile tonight until [id number], she may d/c home.
[2024-01-11 15:58] VITALS: BP 129/82; PULSE 76; RESP 16; TEMP 36.9; O2SAT 98
[2024-01-11] MEDS: montelukast sodium 10 mg Tablet PO (16:39)
[2024-01-11 20:00] VITALS: BP 123/83; PULSE 82; RESP 17; TEMP 37.2; O2SAT 96
--- NOTE | 2024-01-11 20:40 | PM.OBGYPN ---
MANAGEMENT LEAD Subjective Subjective: Interval history: No c/o No abdominal pain Eating, voiding, ambulating well No bleeding, discharge Vitals/I&O/Wt Last Vital Signs Temp 98.9 F 01/11/24 20:00 Pulse 82 01/11/24 20:00 Resp 17 01/11/24 20:00 BP 123/83 01/11/24 20:00 Pulse Ox 96 01/11/24 20:00 O2 Del Method Room Air 01/11/24 20:00 01/11/24 01/12/24 01/12/24 22:59 06:59 14:59 Intake Total 530 / 2060 Balance 530 / 2060 Weight last 48 hrs Weight 196 lb 4 oz Physical Exam Narrative: Comfortable, awake, alert Tmax afebrile x 24 hours VS normal Abd: soft, nontender Data 01/10/24 04:53 01/10/24 04:53 A&P Assessment and plan (1) endometritis: s/p January 01, 2024 with repair of second-degree perineal laceration endometritis patient admitted with fever, chills, and abdominal pain started on Unasyn 3Gms IV endometritis clinically resolved plan discharge home call/return if fever, chills, pain, bleeding f/u in one week Attestations Medical Necessity Statement*: patient admitted with endometritis, treated with IV antibiotics, plan discharge today. Coding Level of Care Code Acute Code for [facility] Fwd Diagnoses endometritis O86.12 Time Spent (min) 20
--- NOTE | 2024-01-11 21:00 | PM.OBGYDC ---
Discharge Providers INSTRUCTOR PHYSICAL EDUCATION Date of Admission: 01/09/24 16:51 Date of Discharge: 01/11/24 Attending Provider at Admission: Maximino Everett MD Attending Provider at Discharge: Maximino Everett MD Consults: none Primary INSTRUCTOR PH[employer]ICAL EDUCATION: Maximino Everett MD Primary Care Provider: SID Hsieh Diagnoses at Discharge Discharge Diagnosis (1) endometritis: Details from hospital stay: s/p January 01, 2024 with repair of second-degree perineal laceration patient admitted with fever, chills, and abdominal pain diagnosed with endometritis started on Unasyn 3Gms IV endometritis clinically resolved discharged home after 24-hours of being afebrile Status: Acute Reason for Visit Reason for Visit: Brief History: 28 y.o. h/o January 01, 2024 admitted with fever, chills, and abdominal pain Hospital Course Hospital Course s/p January 01, 2024 with repair of second-degree perineal laceration patient admitted with fever, chills, and abdominal pain diagnosed with endometritis started on Unasyn 3Gms IV endometritis clinically resolved discharged home after 24-hours of being afebrile Physical Exam Narrative: Comfortable, awake, alert Tmax afebrile x 24 hours VS normal Abd: soft, nontender History History History 1 Term 1 0 Miscarriages/Ectopic 0 Living Children 1 Discharge Data Studies Completed and Pending Laboratory Results WBC 9.05 10^3/uL (3.29-11.43) 01/10/24 04:53 RBC 3.32 10^6/uL (3.85-5.65) L 01/10/24 04:53 Hgb 10.60 g/dL (11.27-16.99) L 01/10/24 04:53 Hct 32.7 % (36-47) L 01/10/24 04:53 MCV 98.5 fl (85-98) H 01/10/24 04:53 MCH 31.9 pg (27-33) 01/10/24 04:53 MCHC 32.4 g/dL (30-55) 01/10/24 04:53 RDW 12.6 % (12.1-15.1) 01/10/24 04:53 Plt Count 281 10^3/cmm (157-399) 01/10/24 04:53 MPV 9.5 fL (7.4-10.4) 01/10/24 04:53 Neut % (Auto) 64.1 % 01/10/24 04:53 Lymph % (Auto) 22.5 % 01/10/24 04:53 [place] % (Auto) 7.0 % 01/10/24 04:53 Eos % (Auto) 5.5 % 01/10/24 04:53 Baso % (Auto) 0.3 % 01/10/24 04:53 Neut # (Auto) 5.80 10^3/uL (1.8-7.7) 01/10/24 04:53 Lymph # (Auto) 2.0 10^3/uL (0.8-4.8) 01/10/24 04:53 [place] # (Auto) 0.6 10^3/uL (0.2-0.9) 01/10/24 04:53 Eos # (Auto) 0.5 10^3/uL (0.0-0.8) 01/10/24 04:53 Baso # (Auto) 0.0 10^3/uL (0.0-0.1) 01/10/24 04:53 Nucleated RBC % (auto) 0 % 01/10/24 04:53 Nucleated RBCs # 0.0 /100WBC 01/10/24 04:53 Sodium 140 mmol/L (136-145) 01/10/24 04:53 Potassium 3.3 mmol/L (3.5-5.1) L 01/10/24 04:53 Chloride 106 mmol/L (98-107) 01/10/24 04:53 Carbon Dioxide 23 mmol/L (22-29) 01/10/24 04:53 Anion Gap 14.3 (5-19) 01/10/24 04:53 BUN 5 mg/dL (6-20) L 01/10/24 04:53 Creatinine 0.4 mg/dL (0.5-0.9) L 01/10/24 04:53 GFR Calculation 192.9 mL/min (90-130) H 01/10/24 04:53 Glucose 99 mg/dL (65-115) 01/10/24 04:53 Calculated Osmolality 287 mOsm/kg (285-295) 01/10/24 04:53 Calcium 8.1 mg/dL (8.5-10.5) L 01/10/24 04:53 Total Bilirubin 0.2 mg/dL (0.15-1.2) 01/10/24 04:53 AST 17 U/L (0-32) 01/10/24 04:53 ALT 23 U/L (0-33) 01/10/24 04:53 Alkaline Phosphatase 113 U/L (35-105) H 01/10/24 04:53 Total Protein 6.3 g/dL (6.6-8.7) L 01/10/24 04:53 Albumin 3.1 g/dL (3.5-5.2) L 01/10/24 04:53 Globulin 3.2 g/dL (1.3-4.6) 01/10/24 04:53 Procedures Performed IV antibiotics therapy Vitals Last Vital Signs Temp 98.9 F 01/11/24 20:00 Pulse 82 01/11/24 20:00 Resp 17 01/11/24 20:00 BP 123/83 01/11/24 20:00 Pulse Ox 96 01/11/24 20:00 O2 Del Method Room Air 01/11/24 20:00 Results Labs OB ([facility]): Obstetrics US 11/07/23 Blood Type A Positive 12/31/23 Antibody Screen Negative 12/31/23 Hct 32.7 % (36-47) L 01/10/24 Hgb 10.60 g/dL (11.27-16.99) L 01/10/24 Rho(D) Type Rh positive 12/31/23 Plt Count 281 10^3/cmm (157-399) 01/10/24 Hep Bs Antigen Non-reactive (Nonreactive) 06/13/23 Hepatitis C Antibody Non-reactive (Nonreactive) 06/13/23 Rubella IgG Antibody 248.8 IU/mL (0.0-10.0) H 06/13/23 RPR Nonreactive (Nonreactive) 06/13/23 HIV 1&2 Ab & HIV 1 Ag Non-reactive (Non-Reactiv) 06/13/23 C.trachomatis RNA (TMA) Not detected (NOT DETECTED) 06/26/23 N.gonorrhoeae RNA (TMA) Not detected (NOT DETECTED) 06/26/23 T. vaginalis Amp RNA Not detected (NOT DETECTED) 06/26/23 Chlamydia/GC Comment See note 06/26/23 Gest Glucose Tolerance 97 mg/dL (70-139) 10/10/23 Ser , Semi-Qnt 01926.00 mIU/mL 05/16/23 HCG, Qual Positive (Negative) H 05/16/23 Urine Opiates Screen Negative ng/mL (Negative) 06/12/23 Ur Barbiturates Screen Negative ng/mL (Negative) 06/12/23 Ur Phencyclidine Scrn Negative ng/mL (Negative) 06/12/23 Ur Amphetamines Screen Negative ng/mL (Negative) 06/12/23 U Benzodiazepines Scrn Negative ng/mL (Negative) 06/12/23 Urine Cocaine Screen Negative ng/mL (Negative) 06/12/23 U Marijuana (THC) Screen Negative ng/mL (Negative) 06/12/23 Micro Urine Specimen 06/12/23 Discharge Plan Discharge Patient Disposition: Home Condition: Stable Prescriptions: Continued montelukast [Singulair] 10 mg tablet 10 mg PO DAILY Qty: 30 11RF Stool Softener 50 mg capsule 50 mg PO BID fluoxetine 10 mg capsule 10 mg PO 1XD 28-800 mg-mcg Tablet 1 tab PO DAILY Discharge Orders: Discharge Order (Routine); Ordered 01/11/24 Ordered By: Maximino Everett Discharge Diet: Usual diet Discharge Activity: Increase activity as tolerated Patient Instructions: Endometritis (DC), Opioid Safety Discharge Attestations INSTRUCTOR PHYSICAL EDUCATION Time Spent in Discharge Care*: less than 30 min Coding Level of Care Code Acute Code for [facility] Fwd Diagnoses endometritis O86.12 Time Spent (min) 20
== END 2024-01-11 22:00 | disposition home or self-care (01) | DRG 776 ==
PROVIDERS: Admitting Provider Obstetrics & Gynecology; PCP Nurse Practitioner Family; Visit Provider Obstetrics & Gynecology
DX: O86.12 Endometritis following delivery (principal)
CPT/HCPCS: 36415; 80053; 85025; J0295; J7121

== ENCOUNTER → 2024-01-15 13:54 | Outpatient (BNVA) | payer BC, SELFPAY | PROVIDERS: PCP Nurse Practitioner Family; Visit Provider Obstetrics & Gynecology | DX: Z34.03 Encounter for supervision of normal first pregnancy, third trimester | CPT/HCPCS: 81000; 87086; 87491; 87591 ==

== ENCOUNTER 2024-05-10 15:30 | Outpatient (CLI) | payer BC, SELFPAY ==
--- NOTE | 2024-05-10 15:32 | USR_ITS ---
PROCEDURE INFORMATION: Exam: US Pelvis Transabdominal, Complete, and US Pelvis Transvaginal, and US Duplex Artery and Vein, Ovaries, Complete, Non-obstetric Exam date and time: 05/10/2024 3:49 PM Age: 28 years old Clinical indication: Pelvic pain; Additional info: Pelvic pain in female TECHNIQUE: Imaging protocol: Real-time complete transabdominal and transvaginal pelvic ultrasound (non-obstetric) with image documentation. Transvaginal imaging was used for better evaluation of the endometrium, adnexa, and/or cervix. Real-time duplex ultrasound scan of the arterial and venous flow of the ovaries with B-mode, color Doppler flow and spectral waveform analysis. Duplex exam was performed to evaluate for torsion and other vascular conditions. COMPARISON: [place] [id number] 11/07/2023 10:20 AM FINDINGS: Uterus: Uterus measures 8.3 x 4.2 x 4.8 cm. Endometrium measures 3 mm. Right ovary/adnexa: The right ovary measures 2.2 x 1.1 x 1.1 cm. Color blood flow is normal. No mass. There is patent arterial and venous blood flow on Doppler imaging. Left ovary/adnexa: The left ovary is not visualized. Intraperitoneal space: There is minimal free fluid present in the cul-de-sac which is likely physiologic. Urinary bladder: Normal. US/US pelv w/transvag [id number] IMPRESSION: 1. No acute findings. 2. Left ovary not visualized.
== END 2024-05-10 15:31 | disposition home or self-care (01) ==
LOC: RAD 15:31
PROVIDERS: PCP Nurse Practitioner Family; Visit Provider Nurse Practitioner Family
DX: R10.2 Pelvic and perineal pain (principal)
CPT/HCPCS: 76830; 76856

== ENCOUNTER → 2024-09-25 09:36 | Outpatient (BNVA) | payer BC, SELFPAY | PROVIDERS: PCP Nurse Practitioner Family | DX: S92.912A Unspecified fracture of left toe(s), initial encounter for closed fracture (principal); M79.672 Pain in left foot; Y29.XXXA Contact with blunt object, undetermined intent, initial encounter | CPT/HCPCS: 73630 ==

== ENCOUNTER → 2025-05-01 15:56 | Outpatient (BNVA) | payer BC, SELFPAY | PROVIDERS: PCP Nurse Practitioner Family; Visit Provider Obstetrics & Gynecology | DX: Z01.419 Encounter for gynecological examination (general) (routine) without abnormal findings (principal) | CPT/HCPCS: 87624 ==